=== PATIENT | male | born 1990 | race African-American/Black ===

== ENCOUNTER 2017-05-17 08:29 | Emergency (ER) | payer SELFPAY ==
[~2017-05-17] VITALS: Ht 190.5 cm; Wt 82.0 kg
[2017-05-17 08:30] VITALS: BP 145/87; PULSE 98; RESP 15; TEMP 98.7; O2SAT 99
--- NOTE | 2017-05-17 09:43 | PD ---
HPI Chief Complaint: Cold / Flu Symptoms Time Seen by Provider: 09:29 Travel History International Travel<30 days: No Contact w/Intl Traveler<30days: No Traveled to known affect area: No History of Present Illness HPI 27-year-old male presents to the emergency room for evaluation of fever, chills , cough, congestion, sore throat, and toothache. Cold and flu symptoms started 2 weeks ago. Toothache started 2 days ago. Patient has been taking over-the- counter medications without significant relief in symptoms. States his son was just diagnosed with pneumonia. No objective fevers. Denies chronic medical conditions or daily medications. He does not have a dentist in the area. PFSH Past Medical History Medical History: Denies Significant Hx Past Surgical History Surgical History: No Previous Surgery Social History Alcohol Use: Yes (RARELY) Tobacco Use: No Substance Use: No Allergies-Medications (Allergen,Severity, Reaction): Coded Allergies: No Known Allergies (Unverified , 05/17/17) Reported Meds & Prescriptions Reported Meds & Active Scripts Active No Active Prescriptions or Reported Medications Review of Systems Except as stated in HPI: all other systems reviewed are Neg Physical Exam Narrative GENERAL: Well-nourished, well-developed male in no acute distress. Afebrile. Ambulatory. SKIN: Focused skin assessment warm/dry. HEAD: Normocephalic. EYES: No scleral icterus. No injection or drainage. NECK: Supple, trachea midline. No JVD or lymphadenopathy. DENTAL: No loose or chipped teeth. No malocclusion. No erythema, edema, or drainage. ENT: Mucosa pink and moist. No erythema or exudates. No uvular edema. No uvular , palatal, or tonsillar deviation. Airway patent. Nasal turbinates appear normal without nasal blood, purulent drainage or septal hematoma. EARS: Bilateral pinnae and external canals appear within normal limits. Bilateral tympanic membranes without erythema, dullness or perforation. CARDIOVASCULAR: Regular rate and rhythm without murmurs, gallops, or rubs. RESPIRATORY: Breath sounds equal bilaterally. No accessory muscle use. No crackles, rales, wheezes, or rhonchi. Data Data Last Documented VS Vital Signs Date Time Temp Pulse Resp B/P (MAP) Pulse Ox O2 Delivery O2 Flow Rate FiO2 05/17/17 08:30 98.7 98 15 145/87 (106) 99 MDM Medical Decision Making Medical Screen Exam Complete: Yes Emergency Medical Condition: Yes Medical Record Reviewed: Yes Differential Diagnosis Dentalgia, URI, flu, sinusitis Narrative Course 27-year-old male presents to the emergency room for evaluation of 2 separate complaints. First is cold symptoms for 2 weeks. Second complaint is dental pain for 2 days. Patient is afebrile and well-appearing in the emergency room. Vital signs stable. Physical exam is reassuring. No erythematous pharynx. Lungs sounds clear and equal bilaterally. Patient has moderate mucus in the sinuses. Given duration of symptoms, he'll be treated empirically with Augmentin. Told to follow-up with a PCP return for worsening symptoms. There is no evidence of acute infection in the tooth at this moment. Patient was told to follow up with a dentist for possible cavity filling. He understands and agrees to plan. Diagnosis Primary Impression: Sinusitis Qualified Codes: J01.00 - Acute maxillary sinusitis, unspecified Additional Impression: Dentalgia Referrals: Primary Care Physician Additional Instructions: Augmentin as directed, until gone. Continue [id number] cough and cold medications. Tylenol and Motrin for pain. Follow up with a dentist and PCP. Return for worsening symptoms. Scripts No Active Prescriptions or Reported Meds Disposition: DISCHARGE HOME Condition: Stable Nan Conroy May 17, 2017 09:43
[2017-05-17] MEDS ORDERED: AUGM875T3 PO (09:44)
== END 2017-05-17 10:06 | disposition home or self-care (01) ==
LOC: NEPK 08:29
DX: J01.00 Acute maxillary sinusitis, unspecified (principal)
CPT/HCPCS: 99283